=== PATIENT | female | born 1955 | race Caucasian/White ===

== ENCOUNTER 2018-01-16 15:26 | Emergency (ER) | payer OTHER ==
[2018-01-16] MEDS: ONDANSETRON 4 MG INJ IV ×3 (15:57→20:11)
[2018-01-16] MEDS: SOD CHLORIDE 0.9% 1,000 ML IV ×3 (15:57→21:32)
[2018-01-16] MEDS: morphine 4 MG/ML VIAL IV (15:57)
[2018-01-16 16:01] LABS: WHITE BLOOD COUNT 5.4 10^3/ul (4.8-10.8)
[2018-01-16 16:01] LABS: ABNORMAL IP MESSAGE 1; HEMATOCRIT 55.2 % (37.0-47.0); HEMOGLOBIN 17.7 g/dl (12.0-16.0); MEAN CORPUSCULAR HGB CONC 32.1 g/dl (32.0-37.0); MEAN CORPUSCULAR VOLUME 90.3 fl (82.0-101.0); MEAN PLATELET VOLUME 11.6 fl (7.4-10.4); PLATELET COUNT 337 10^3/UL (140-415); RED BLOOD COUNT 6.11 10^6/ul (4.20-5.40); RED CELL DISTRIBUTION WIDTH 13.2 % (11.5-14.5)
[2018-01-16 16:14] LABS: ADD MAN DIFF? YES; POSITIVE DIFF @See below
[2018-01-16 16:21] LABS: INR 1.03; PARTIAL THROMBOPLASTIN TIME 31.5 Sec (25.0-35.0); PROTIME 13.6 Sec (11.9-14.9); PT RATIO 1.1
[2018-01-16 16:22] LABS: ALANINE AMINOTRANSFERASE 40 IU/L (13-69); ALBUMIN 4.3 g/dl (3.3-4.9); ALBUMIN/GLOBULIN RATIO 1.48; ALKALINE PHOSPHATASE 114 IU/L (42-121); ANION GAP 27 (8-16); ASPARTATE AMINO TRANSFERASE 52 IU/L (15-46); BILIRUBIN,INDIRECT 0.6 mg/dl (0-1.1); BILIRUBIN,TOTAL 0.6 mg/dl (0.2-1.3); BLOOD UREA NITROGEN 30 mg/dl (7-20); CALCIUM 9.3 mg/dl (8.4-10.2); CARBON DIOXIDE 19 mmol/L (21-31); CHLORIDE 106 mmol/L (97-110); CREATININE 2.02 mg/dl (0.44-1.00); GLUCOSE 183 mg/dl (70-220); LIPASE 227 U/L (23-300); POTASSIUM 4.2 mmol/L (3.5-5.1); SODIUM 148 mmol/L (135-144); TOTAL PROTEIN 7.2 g/dl (6.1-8.1)
[2018-01-16 16:30] LABS: LACTIC ACID 8.3 mmol/L (0.5-2.0)
[2018-01-16 16:38] LABS: AMYLASE 1638 U/L (11-123); TROPONIN-I < 0.012 ng/ml (0.00-0.12)
[2018-01-16 16:39] LABS: ADD UMIC YES; UR ASCORBIC ACID NEGATIVE (NEGATIVE); UR BACTERIA FEW /HPF (NONE SEEN); UR BILIRUBIN (Dip) NEGATIVE (NEGATIVE); UR BLOOD (Dip) 1+ mg/dL (NEGATIVE); UR BUDDING YEAST FEW /HPF (NONE SEEN); UR CLARITY CLOUDY (CLEAR); UR COLOR YELLOW (YELLOW); UR GLUCOSE (Dip) NEGATIVE (NEGATIVE); UR KETONES (Dip) NEGATIVE (NEGATIVE); UR LEUKOCYTE ESTERASE (Dip) 3+ Leu/ul (NEGATIVE); UR MUCUS MODERATE /HPF (NONE SEEN); UR NITRITE (Dip) NEGATIVE (NEGATIVE); UR NONSQUAMOUS EPITHELIAL CELL 1 /HPF (NONE SEEN); UR RBC 15 /HPF (0-5); UR SPECIFIC GRAVITY (Dip) 1.013 (1.003-1.030); UR TOTAL PROTEIN (Dip) 2+ mg/dl (NEGATIVE); UR UROBILINOGEN (Dip) NEGATIVE (NEGATIVE); UR WBC 75 /HPF (0-5)
[2018-01-16] MEDS: CEFEPIME 2GM/50 ML (PMX) 50 ML IVPB (16:41)
[2018-01-16] MEDS: HYDROmorphONE 0.5 MG/0.5 ML SYG IV ×2 (17:03→20:10)
[2018-01-16] MEDS: SODIUM CHLORIDE 0.9% 1L BAG IV* (17:04)
[2018-01-16] MEDS: VANCOMYCIN 1 GM (PMX) 250 ML IVPB (17:13)
[2018-01-16 17:46] LABS: BAND NEUTROPHILS #M 1.6 10^3/ul (0.0-0.6); BAND NEUTROPHILS % (M) 31 % (0-4); GIANT THROMBO% (M) 9 % (0-0); LYMPHOCYTES #M 0.9 10^3/ul (0.8-2.9); LYMPHOCYTES % (M) 17 % (15-51); METAMYELOCYTES #M 0.3 10^3/ul (0.0-0.0); METAMYELOCYTES %M 7 % (0-0); MONOCYTE #M 0.3 10^3/ul (0.3-0.9); MONOCYTES % (M) 7 % (0-11); MYELOCYTES #M 0.2 10^3/ul (0.0-0.0); MYELOCYTES % (M) 4 % (0-0); PLATELET ESTIMATE NORMAL; REACTIVE LYMPHOCYTES #M 0.4 10^3/ul (0.0-0.0); REACTIVE LYMPHOCYTES% (M) 8 % (0-0); SEG NEUT #M 1.5 10^3/ul (1.6-7.5); SEGMENTED NEUTROPHILS (M) % 26 % (39-77); SMUDGE%M 2 % (0-0)
[2018-01-16] MEDS ORDERED: SOD CHLORIDE 0.9% 100 ML (18:22)
[2018-01-16] MEDS ORDERED: IODIXANOL LOCM 100 ML BTL (18:22)
[2018-01-16 18:42] LABS: LACTIC ACID 7.2 mmol/L (0.5-2.0)
[2018-01-16] MEDS: CLINDAMYCIN 900 MG/D5W (PMX) 50 ML IVPB (20:13)
[2018-01-16 20:59] LABS: LACTIC ACID 5.9 mmol/L (0.5-2.0)
== END 2018-01-16 21:58 | disposition short-term general hospital (02) ==
LOC: E/R 21:58
DX: N12 Tubulo-interstitial nephritis, not specified as acute or chronic (principal); K66.8 Other specified disorders of peritoneum; I10 Essential (primary) hypertension; R65.21 Severe sepsis with septic shock; A41.9 Sepsis, unspecified organism; Z85.038 Personal history of other malignant neoplasm of large intestine
CPT/HCPCS: 71045; 74177; 80053; 81001; 82150; 83605; 83690; 84484; 85025; 85610; 85730; 87040; 87086; 93005; 96365; 96366; 96367; 96375; 96376; 99291-25